=== PATIENT | female | born 1980 | race Caucasian/White ===

== ENCOUNTER → 2017-12-11 | Outpatient (CLI) | payer SELFPAY ==
[~2017-12-11] MED LIST: IBUP600 PO; PROM25 PO; Prilosec20 MG PO
[2017-12-13 12:03] LABS: HPV Genotype 16 Not Detected (NOTDET); HPV Genotype 18 Not Detected (NOTDET)
[2017-12-18 07:39] LABS: HPV High Risk Other Not Detected (NOTDET)
== END ==
LOC: LAB 16:55 → LAB SHORT 16:55
PROVIDERS: Registered Nurse
DX: Z12.4 Encounter for screening for malignant neoplasm of cervix (principal)
CPT/HCPCS: 87624; G0145